=== PATIENT | male | born 1965 | race Caucasian/White ===

== ENCOUNTER 2021-06-04 17:32 | Emergency (ER) | payer SELFPAY ==
[~2021-06-04] VITALS: Ht 190.5 cm; Wt 99.1 kg
[2021-06-04 17:56] VITALS: BP 139/89
[2021-06-04] MEDS ORDERED: acetaminophen 325mg tablet PO ONE (18:15)
== END 2021-06-04 20:07 | disposition left against medical advice (07) ==
LOC: ER 17:34
DX: R05 Cough (principal); R06.02 Shortness of breath; Z53.21 Procedure and treatment not carried out due to patient leaving prior to being seen by health care provider